=== PATIENT | female | born 1995 | race Caucasian/White ===

== ENCOUNTER 2018-05-06 19:17 | Emergency (ER) | payer OTHER ==
[2018-05-06] MEDS ORDERED: ESCI10TA8 PO (19:45)
[2018-05-06] MEDS ORDERED: BUPR-472 PO (19:45)
[2018-05-06] MEDS ORDERED: DOXY50CA27 PO (19:45)
--- NOTE | 2018-05-06 20:27 | ER Report ---
History and Physical Time Seen By : 20:27 Hx. 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 Working on laboratory myself infected with toxoplasma gondii ME49 strain. Previous work with injecting the cysts, the my start already infected, they were doing work injecting iron daily later when she was stuck with a needle that had been used on for previous Jessica. This did draw blood. Washed with soap and water for 5 minutes. Protocol at the [facility] says that she should do initial a sling lab testing followed by treatment with prophylactic medicines Pyrimethamine, Sulfadiazine, and Leucovorin. She is not , not active. No current signs of illness, fevers/chills, nausea/vomiting. Allergies: Coded Allergies: No Known Drug Allergies (Unverified , 05/06/18) Home Meds Active Scripts Sulfadiazine (SULFADIAZINE) 500 Mg Tablet, 1000 MG PO QID for 14 Days, #112 TAB 0 Refills Prov:DUY CROOKS MD 05/06/18 Leucovorin Calcium (LEUCOVORIN CALCIUM) 10 Mg Tablet, 10 MG PO QDAY for 14 Days, #14 TAB 0 Refills Prov:DUY CROOKS MD 05/06/18 Pyrimethamine (DARAPRIM) 25 Mg Tablet, 50 MG PO QDAY for 14 Days, #28 TAB 0 Refills Prov:DUY CROOKS MD 05/06/18 Reported Medications Escitalopram Oxalate (ESCITALOPRAM OXALATE) 10 Mg Tablet, 10 MG PO QDAY, TAB 05/06/18 Bupropion Hcl (WELLBUTRIN XL) 150 Mg Tab.er.24h, 150 MG PO QDAY, TAB 05/06/18 Doxycycline Hyclate (DOXYCYCLINE HYCLATE) 50 Mg Capsule, 50 MG PO BID, CAPSULE 05/06/18 Reviewed Nurses Notes: Yes Hx Substance Use Disorder: No Hx Alcohol Use: No Constitutional Vital Sign - Last 24 Hours 05/06/18 05/06/18 19:41 22:17 Temp 98.2 Pulse 92 95 Resp 12 12 B/P (MAP) 107/90 119/69 (86) Pulse Ox 92 95 O2 Delivery Room Air Room Air O2 Flow Rate 0 Physical Exam General: Alert, oriented, no acute distress. Skin: Small puncture on finger which bled, minimal. Medical Decision Making Data Points Result Diagram: 05/06/18210405/06/182104 Laboratory Hematology Test 05/06/18 21:05 Red Blood Count 5.05 M/uL (4.17-5.56) Mean Corpuscular Volume 90.6 fL (80.0-96.0) Mean Corpuscular Hemoglobin 31.0 pg (26.0-33.0) Mean Corpuscular Hemoglobin Concent 34.2 g/dL (32.0-36.0) Red Cell Distribution Width 13.3 % (11.5-14.5) Mean Platelet Volume 9.0 fL (7.2-11.1) Neutrophils (%) (Auto) 60.9 % (39.4-72.5) Lymphocytes (%) (Auto) 30.3 % (17.6-49.6) Monocytes (%) (Auto) 7.6 % (4.1-12.4) Eosinophils (%) (Auto) 0.8 % (0.4-6.7) Basophils (%) (Auto) 0.4 % (0.3-1.4) Nucleated RBC Relative Count (auto) 0.0 /100WBC Neutrophils # (Auto) 4.7 K/uL (2.0-7.4) Lymphocytes # (Auto) 2.4 K/uL (1.3-3.6) Monocytes # (Auto) 0.6 K/uL (0.3-1.0) Eosinophils # (Auto) 0.1 K/uL (0.0-0.5) Basophils # (Auto) 0.0 K/uL (0.0-0.1) Nucleated RBC Absolute Count (auto) 0.00 K/uL Sodium Level 139 mmol/L (137-145) Potassium Level 3.9 mmol/L (3.5-5.0) Chloride Level 101 mmol/L (98-107) Carbon Dioxide Level 27 mmol/L (22-31) Blood Urea Nitrogen 16 mg/dl (7-18) Creatinine 1.00 mg/dl (0.52-1.04) Glomerular Filtration Rate Calc > 60.0 Random Glucose 80 mg/dl (75-110) Calcium Level 9.5 mg/dl (8.4-10.2) Total Bilirubin 0.1 mg/dl (0.2-1.3) Aspartate Amino Transf (AST/SGOT) 19 U/L (0-35) Alanine Aminotransferase (ALT/SGPT) 16 U/L (0-56) Alkaline Phosphatase 109 U/L (0-126) Total Protein 7.8 g/dl (6.3-8.2) Albumin 4.7 g/dl (3.5-5.0) Chemistry Test 05/06/18 21:05 White Blood Count 7.8 k/uL (4.5-11.0) Red Blood Count 5.05 M/uL (4.17-5.56) Hemoglobin 15.6 g/dL (12.0-16.0) Hematocrit 45.7 % (34.0-47.0) Mean Corpuscular Volume 90.6 fL (80.0-96.0) Mean Corpuscular Hemoglobin 31.0 pg (26.0-33.0) Mean Corpuscular Hemoglobin Concent 34.2 g/dL (32.0-36.0) Red Cell Distribution Width 13.3 % (11.5-14.5) Platelet Count 309 K/uL (150-450) Mean Platelet Volume 9.0 fL (7.2-11.1) Neutrophils (%) (Auto) 60.9 % (39.4-72.5) Lymphocytes (%) (Auto) 30.3 % (17.6-49.6) Monocytes (%) (Auto) 7.6 % (4.1-12.4) Eosinophils (%) (Auto) 0.8 % (0.4-6.7) Basophils (%) (Auto) 0.4 % (0.3-1.4) Nucleated RBC Relative Count (auto) 0.0 /100WBC Neutrophils # (Auto) 4.7 K/uL (2.0-7.4) Lymphocytes # (Auto) 2.4 K/uL (1.3-3.6) Monocytes # (Auto) 0.6 K/uL (0.3-1.0) Eosinophils # (Auto) 0.1 K/uL (0.0-0.5) Basophils # (Auto) 0.0 K/uL (0.0-0.1) Nucleated RBC Absolute Count (auto) 0.00 K/uL Glomerular Filtration Rate Calc > 60.0 Calcium Level 9.5 mg/dl (8.4-10.2) Total Bilirubin 0.1 mg/dl (0.2-1.3) Aspartate Amino Transf (AST/SGOT) 19 U/L (0-35) Alanine Aminotransferase (ALT/SGPT) 16 U/L (0-56) Alkaline Phosphatase 109 U/L (0-126) Total Protein 7.8 g/dl (6.3-8.2) Albumin 4.7 g/dl (3.5-5.0) ED Course/Re-evaluation ED Course Conflicting information from [facility], [place], [facility] and other cites. Some recommend prophylaxix and some indicate baseline labs and watching. Even in acute infection in immunocompetent patients, acute toxoplasmosis infection usually does not require treatment, only in visceral, occular, immunocompromised or /congenital cases. Based on conflicting data, the patient would like to do the treatment. Treatment with these medicines does carry the risk of bone marrow suppression and liver toxicity. IgG and IgM for Toxoplasma obtained along with CBC and CMP. We did not have the medicines available, so called around to pharmacies and hospitals. The closest available would be [facility]. Discussed the case with Dr. Chan at [facility] in the ER, who will see the patient and provide medicines. Pyrimethamine 200mg loading dose on the first day, followed by 50-75mg/day for 2 weeks. This would be a once daily dose. Leucovorin 10-25mg with each dose of Pyrimethamine, will plan on the 10mg dose. (some sources recommend 7.5mg per day). Sulfadiazine 1000mg 4 times a day for 2 weeks. (most sources recommend adult dose of 2-4 grams per day) She will follow-up with the [facility] for follow-up and blood test monitoring. Decision to Disposition Date: May 06, 2018 Decision to Disposition Time: 21:51 Depart Departure Latest Vital Signs Vital Signs Date Time Temp Pulse Resp B/P (MAP) Pulse Ox O2 Delivery O2 Flow Rate FiO2 05/06/18 22:17 95 12 119/69 (86) 95 Room Air 0 05/06/18 19:41 98.2 Impression: Primary Impression: Exposure to Toxoplasma species Additional Impression: Needle stick injury Condition: Improved Disposition: HOME OR SELF-CARE New Scripts Sulfadiazine (SULFADIAZINE) 500 Mg Tablet 1000 MG PO QID for 14 Days, #112 TAB 0 Refills Prov: DUY CROOKS MD 05/06/18 Leucovorin Calcium (LEUCOVORIN CALCIUM) 10 Mg Tablet 10 MG PO QDAY for 14 Days, #14 TAB 0 Refills Prov: DUY CROOKS MD 05/06/18 Pyrimethamine (DARAPRIM) 25 Mg Tablet 50 MG PO QDAY for 14 Days, #28 TAB 0 Refills Prov: DUY CROOKS MD 05/06/18 Additional Instructions: Information varies on what needs to be done with your needle-stick exposure to mice with Toxoplasmosis. Because you were injecting the iron chelator and not the actual Toxoplasmosis cysts, the chance of infection is extremely low. Initial blood work tonight included [place] of the bodies antibody response with IgG and IgM for Toxoplasma and a complete blood count and comprehensive metabolic panel. Prophylactic treatment with antibiotics is controversial. Based on this, we will begin the treatment and have you follow-up with [facility]. These can cause liver toxicity and bone marrow suppression. The antibiotics will be as noted below. Pyrimethamine 200mg loading dose on the first day, followed by 50mg/day for 2 weeks. This would be a once daily dose. Leucovorin 10mg with each dose of Pyrimethamine. Sulfadiazine 1000mg 4 times a day for 2 weeks. Please follow-up with [facility] tomorrow so they can arrange the timing for you for follow-up labs to monitor the medicines. Information from [facility], [facility], and the [facility] were provided. Problem Qualifiers DUY CROOKS MD May 06, 2018 20:27
[2018-05-06 21:17] LABS: PLATELET COUNT, AUTOMATED 309 K/uL (150-450)
[2018-05-06] MEDS ORDERED: SULF500T46 PO (22:00)
[2018-05-06] MEDS ORDERED: [UNRECOGNIZED DRUG - CODE] PO (22:00)
[2018-05-06] MEDS ORDERED: PYRI25TA PO (22:00)
[2018-05-06 22:17] VITALS: BP 119/69
== END 2018-05-06 22:40 | disposition home or self-care (01) ==
LOC: ER 20:30
DX: Z20.818 Contact with and (suspected) exposure to other bacterial communicable diseases (principal)
CPT/HCPCS: 82040; 82247; 82310; 82374; 82435; 82565; 82947; 84075; 84132; 84155; 84295; 84450; 84460; 84520; 85025; 86317; 86778; 99282